=== PATIENT | male | born 2000 | race Caucasian/White ===

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

== ENCOUNTER 2023-02-12 19:55 | Emergency (ER) | payer SELFPAY ==
[2023-02-12 19:56] VITALS: BP 150/88; PULSE 86; RESP 16; TEMP 36.4; O2SAT 100; BMI 26.9
[2023-02-12 21:19] LABS: Absolute Lymphocyte Count 1.95 X10^3/uL (0.83-4.51); Absolute Neutrophil Count 5.7 X10^3/uL (2.0-7.7); Basophil# 0.02 X10^3/uL; Basophil% 0.2 % (0-1); Eosinophil# 0.07 X10^3/uL; Eosinophils% 0.8 % (0-5); Hematocrit 46.1 % (40-54); Hemoglobin 15.6 g/dL (13.0-16.5); Lymphocyte # 1.95 X10^3/ul (0.83-4.51); Lymphocyte % 23.6 % (19-41); Mean Corp Hgb Conc 33.8 g/dL (32-36); Mean Corpuscular Hgb 30.5 pg (27.0-32.0); Mean Platelet Vol. 9.9 fl (6.2-12.0); Monocyte# 0.54 X10^3/uL; Monocyte% 6.5 % (0-10); NRBC Flagged by Analyzer 0 % (0-5); Neutrophil # 5.66 X10^3/uL (2.7-7.7); Neutrophil % 68.7 % (47-70); Platelet Count 245 K/mm3 (150-450); RBC Distribution Width CV 11.9 % (11.6-14.6); RBC Distribution Width SD 38.9 fl (35.1-43.9); Red Blood Count 5.12 M/mm3 (4.6-6.2); White Blood Count 8.3 K/mm3 (4.4-11.0)
[2023-02-12 21:30] LABS: Amphetamine Urine VISTA NEGATIVE (<1000 ng/mL); Barbiturate Urine VISTA NEGATIVE (< 200 ng/mL); Benzodiazepine Urine VISTA NEGATIVE (< 200 ng/mL); Cocaine Urine VISTA NEGATIVE (< 300 ng/mL); Ecstacy Urine VISTA NEGATIVE (< 500 ng/mL); Methadone Urine VISTA NEGATIVE (< 300 ng/mL); PCP Urine VISTA NEGATIVE (< 25 ng/mL); THC Urine VISTA NEGATIVE (< 50 ng/mL); Vista UDS pH Range 6
[2023-02-12 21:40] LABS: Anion Gap 5 (5-15); BUN 16 mg/dL (7-18); BUN/Creat Ratio 12.3 RATIO (10-20); Calcium,Total 8.9 mg/dL (8.5-10.1); Chloride 105 mmol/L (98-107); EST Glomerular Filtration Rate 73 mL/min (>60); Est Glom Filt Rate - Afr Amer 89 mL/min (>60); Estimated Creatinine Clearance 92.03 ml/min; Glucose 83 mg/dL (74-106); Potassium 3.6 mmol/L (3.5-5.1); Sodium Level 138 mmol/L (136-145)
[2023-02-12 21:46] LABS: Alcohol, Blood (Medical)-Serum < 3.0 mg/dL
--- NOTE | 2023-02-12 21:56 | EX.ED.DYSGE1 ---
HPI <DALE Zavala - Last Filed: 02/12/23 22:31> History of Present Illness Chief Complaint: Mental Health Narrative Narrative: Patient is a 22-year-old male who is here with his mom and girlfriend secondary to uncontrolled anxiety. Patient has been on and off prednisone over the last several weeks secondary to a rash from a penicillin. Patient has been to the emergency department for separate times secondary to anxiety. Patient thinks that he is going to . Speaking to his mom and his girlfriend, they are continually reassuring him that he is not dying. Every little feeling that the patient is feeling he believes it is the end of his life. Patient denies any suicidal homicidal ideation, patient has any plan to hurt himself. He states is actually the opposite, he is so scared of dying that he is having difficulty living. PFSH <DALE Zavala - Last Filed: 02/12/23 22:31> [facility] Home Medications hydroxyzine HCl 25 mg tablet 25 mg PO TID PRN itching #20 tabs 02/12/23 [Rx Last Taken Unknown] Allergy/AdvReac Type Severity Reaction Status Date / Time bee venom protein (honey bee) Allergy Hives Verified 02/12/23 19:56 Penicillins Allergy Hives Verified 02/12/23 19:56 shellfish derived Allergy Anaphylaxis Verified 02/12/23 19:56 Surgical History Adel teeth removed Social History (Updated 02/12/23 @ 22:15 by Ashlie King) household members: family Smoking Status: Never smoker alcohol intake: never ROS <DALE Zavala - Last Filed: 02/12/23 22:31> ROS ED ROS Narrative Constitutional: Negative for fever, chills, weight loss, weakness Eyes: Negative for vision loss, vision change, double vision ENT: Negative for any sore throat, ear pain, congestion Cardiovascular: Negative for any chest pain, tightness, palpitations Respiratory: Negative for any cough, sputum production, hemoptysis, dyspnea, dyspnea on exertion, orthopnea Gastrointestinal: Negative for any abdominal pain, nausea, vomiting, diarrhea, constipation, blood in stool, blood in vomit : Negative for any urinary frequency, dysuria, retention, blood in urine Muscle skeletal: Negative for any muscle joint pain, stiffness, myalgias, arthralgias, neck pain, back pain Neurological: Negative for any headache, syncope, numbness or tingling, dizziness Skin: Negative for any rashes, lumps, itching, abrasions, lacerations Psychiatric: Negative for any depression, suicidal ideation, homicidal ideation. Positive for anxiety, stress Hematologic: Negative for any easy bruising, excessive bruising, easy bleeding Allergies: Negative for any eczema, hives, rash EXAM <DALE Zavala - Last Filed: 02/12/23 22:31> Physical Exam Narrative Exam Narrative: Vital signs reviewed. Patient is alert and orient x4. Patient does appear anxious. Patient is clear that he has no suicidal homicidal ideation. HEET: Head normocephalic atraumatic, TMs clear bilaterally. Posterior pharynx is clear, moist mucous membranes. Nares clear bilaterally. Neck: Supple with no lymphadenopathy or tenderness. No signs of meningismus, negative jolt sign. Cardiac: Regular rate and rhythm no murmurs gallops or rubs, equal peripheral pulses bilaterally. Respiratory: Lungs clear to auscultation bilaterally. No chest tenderness. Abdomen: Soft, nontender, nondistended. No abdominal bruit or pulsatile masses. No hepatosplenomegaly Extremities: No peripheral edema, no signs of gross trauma or deformity. Active full range of motion of all extremities. Neuro: Cranial nerves II through XII intact, no focal neurological deficits. Skin: Clean dry and intact with no rash, purpura, petechiae, vesicles or pustules. Backs/flank: No CVA tenderness, no midline spinal tenderness, no deformity. Psych: Normal mood and affect. No SI, HI or acute psychosis. Patient does appear anxious. Const Vital Signs: 02/12/23 19:56 02/12/23 22:00 Temperature 97.6 F L Temperature Source Temporal Pulse Rate 86 Respiratory Rate 16 16 Blood Pressure 150/88 H Blood Pressure Mean 108 Pulse Ox 100 <Dr. Nayana Jimenez, DO - Last Filed: 02/13/23 01:02> Physical Exam Const Vital Signs: 02/12/23 19:56 02/12/23 22:00 Temperature 97.6 F L Temperature Source Temporal Pulse Rate 86 Respiratory Rate 16 16 Blood Pressure 150/88 H Blood Pressure Mean 108 Pulse Ox 100 [facility] <DALE Zavala - Last Filed: 02/12/23 22:31> [facility] Lab Data Labs: Laboratory Results - last 24 hr 02/12/23 02/12/23 21:00 21:12 WBC 8.3 RBC 5.12 Hgb 15.6 Hct 46.1 MCV 90.0 MCH 30.5 MCHC 33.8 RDW Std Deviation 38.9 RDW Coeff of Ammy 11.9 Plt Count 245 MPV 9.9 Immature Gran % (Auto) 0.200 Neut % (Auto) 68.7 Lymph % (Auto) 23.6 [place] % (Auto) 6.5 Eos % (Auto) 0.8 Baso % (Auto) 0.2 Absolute Neuts (auto) 5.7 Absolute Lymphs (auto) 1.95 Nucleated RBC % 0 Sodium 138 Potassium 3.6 Chloride 105 Carbon Dioxide 28.0 Anion Gap 5 BUN 16 Creatinine 1.30 Estim Creat Clear Calc 92.03 Est GFR (MDRD) Af Amer 89 Est GFR (MDRD) Non-Af 73 BUN/Creatinine Ratio 12.3 Glucose 83 Calcium 8.9 TSH 2.46 Cortisol 3.20 L Urine Opiates Screen NEGATIVE Urine Methadone Screen NEGATIVE Ur Barbiturates Screen NEGATIVE Ur Phencyclidine Scrn NEGATIVE Ur Amphetamines Screen NEGATIVE MDMA (Ecstasy) Screen NEGATIVE U Benzodiazepines Scrn NEGATIVE Urine Cocaine Screen NEGATIVE U Cannabinoids Screen NEGATIVE Ur Drug Screen Comment Ethyl Alcohol < 3.0 Treatment and Re-Evaluation :: Patient is in no obvious distress. Patient is not suicidal, homicidal. Patient is here for anxiety, is here with his mother and girlfriend. Patient is clear that he is not suicidal homicidal. The mother and family are concerned as well as exhausted secondary the patient's ongoing anxiety about potentially dying.Patient did receive basic laboratory values, patient CBC, chemistries were grossly unremarkable, patient's toxicology is unremarkable. Patient's alcohol was negative. I did order a TSH as well as a cortisol serum. Patient was given 1 mg of Ativan. On reevaluation, the patient was more calm. Do not believe the patient needs inpatient therapy. Do believe the patient is safe for outpatient. He will be given psychiatry as well as hydroxyzine. Instructed to stop his Benadryl. Spoke with the patient and the patient's mother and girlfriend, all are in agreement. They were given strict return precaution to return for any worsening anxiety, suicidal, homicidal ideation. They need to follow-up outpatient. <Dr. Nayana Jimenez, DO - Last Filed: 02/13/23 01:02> [facility] Lab Data Labs: Laboratory Results - last 24 hr 02/12/23 02/12/23 21:00 21:12 WBC 8.3 RBC 5.12 Hgb 15.6 Hct 46.1 MCV 90.0 MCH 30.5 MCHC 33.8 RDW Std Deviation 38.9 RDW Coeff of Ammy 11.9 Plt Count 245 MPV 9.9 Immature Gran % (Auto) 0.200 Neut % (Auto) 68.7 Lymph % (Auto) 23.6 [place] % (Auto) 6.5 Eos % (Auto) 0.8 Baso % (Auto) 0.2 Absolute Neuts (auto) 5.7 Absolute Lymphs (auto) 1.95 Nucleated RBC % 0 Sodium 138 Potassium 3.6 Chloride 105 Carbon Dioxide 28.0 Anion Gap 5 BUN 16 Creatinine 1.30 Estim Creat Clear Calc 92.03 Est GFR (MDRD) Af Amer 89 Est GFR (MDRD) Non-Af 73 BUN/Creatinine Ratio 12.3 Glucose 83 Calcium 8.9 TSH 2.46 Cortisol 3.20 L Urine Opiates Screen NEGATIVE Urine Methadone Screen NEGATIVE Ur Barbiturates Screen NEGATIVE Ur Phencyclidine Scrn NEGATIVE Ur Amphetamines Screen NEGATIVE MDMA (Ecstasy) Screen NEGATIVE U Benzodiazepines Scrn NEGATIVE Urine Cocaine Screen NEGATIVE U Cannabinoids Screen NEGATIVE Ur Drug Screen Comment Ethyl Alcohol < 3.0 Treatment and Re-Evaluation :: Patient is in no obvious distress. Patient is not suicidal, homicidal. Patient is here for anxiety, is here with his mother and girlfriend. Patient is clear that he is not suicidal homicidal. The mother and family are concerned as well as exhausted secondary the patient's ongoing anxiety about potentially dying.Patient did receive basic laboratory values, patient CBC, chemistries were grossly unremarkable, patient's toxicology is unremarkable. Patient's alcohol was negative. I did order a TSH as well as a cortisol serum. Patient was given 1 mg of Ativan. On reevaluation, the patient was more calm. Do not believe the patient needs inpatient therapy. Do believe the patient is safe for outpatient. He will be given psychiatry as well as hydroxyzine. Instructed to stop his Benadryl. Spoke with the patient and the patient's mother and girlfriend, all are in agreement. They were given strict return precaution to return for any worsening anxiety, suicidal, homicidal ideation. They need to follow-up outpatient. I have personally performed a face to face assessment of the patient and have reviewed the DHARMESH Note. I performed a substantive portion of the visit including all aspects of the following. My andrade findings include: Patient is a 22-year-old male presenting with mother for worsening anxiety. Patient has intrusive thoughts that make him feel like something is going to kill him and then he feels like he must come to the emergency room to be evaluated. He is given oral Ativan in the ER. He had multiple ER visits between [facility] and [facility]. He has no HI or SI. His symptoms seem to be exacerbated by recent treatment with steroids beginning of the month secondary to presumed penicillin rash. The rash is also still present however is no longer itchy. Patient is not interested in voluntary inpatient psych at this time especially when I explained to him that without insurance likely will be a prolonged wait however I would be happy to get started on that if he would like. He is given multiple outpatient resources including outpatient psychiatry, counseling center as well as for dermatology for his rash. Medically there does not seem to be an acute issue such as adrenal crisis or other acute abnormality causing any emergent process. Started on hydroxyzine for symptom control. Other additions or changes: [None] Discharge Plan Triage Chief Complaint: Mental Health ED Midlevel Provider: Roe Teajda ED Provider: Nayana Jimenez Dx/Rx/DC Orders Clinical Impression: Anxiety disorder, Panic attack Instructions: Anxiety Disorders Tx, Anxiety Disorders Medicine, ED Anxiety Reaction Prescriptions: New hydroxyzine HCl 25 mg tablet 25 mg PO TID PRN (Reason: itching) Qty: 20 0RF Primary Care Provider: Nida Tran NP Referrals: Counseling,Center [Group of Physicians] - As soon as possible Ananth Adrian MD [Med Staff - Heel Molder] - As Needed Yovani Latham DO [Med Staff - Heel Molder] - Nida Tran NP, TUYERE FITTER-C [Primary Care Provider] - Activity Restrictions/Additional Instructions: Use hydroxyzine. Follow-up outpatient. Disposition Disposition: Home, Self Care Discharge Date/Time: 02/12/23 23:53
[2023-02-12 22:00] VITALS: RESP 16
[2023-02-12] MEDS: LORazepam 1 MG Tablet PO (22:02)
[2023-02-12 23:11] LABS: Thyroid Stim Hormone (TSH) 2.46 uIU/mL (0.358-3.74)
== END 2023-02-12 23:53 | disposition home or self-care (01) ==
PROVIDERS: Nurse Practitioner; Emergency Provider Emergency Medicine; PCP Nurse Practitioner Family; Visit Provider Emergency Medicine
DX: F41.0 Panic disorder [episodic paroxysmal anxiety] (principal)
CPT/HCPCS: 99281 ×2; 80048; 80307; 82077; 82533; 84443; 85025; 87811; 99283

== ENCOUNTER 2024-08-31 12:35 | Emergency (ER) | payer BC, SELFPAY ==
[2024-08-31 12:36] VITALS: BP 135/10; PULSE 82; RESP 16; TEMP 36.6; O2SAT 98; BMI 26.6
--- NOTE | 2024-08-31 13:18 | CT_ITS ---
PROCEDURE: ABDOMEN/PELVIS W IV CONT ONLY 08/31/2024 REASON FOR EXAM: CONSTIPATION, GI BLEED Chronic constipation and left lower quadrant pain. TECHNIQUE: Abdomen CT without and with intravenous contrast. Coronal and Sagittal reconstruction series were provided. PATIENT PREPARATION: Per protocol ORAL CONTRAST TYPE: None. CONTRAST: Isovue 300 VOLUME: 100 mLmL One or more dose reduction techniques were used (e.g., Automated exposure control, adjustment of the mA and/or kV according to patient size, use of iterative reconstruction technique. RADIATION DOSE SUMMARY: CTDlvol: 13.2 mGy DLP: 730.05 mGycm COMPARISON: None FINDINGS: Lung bases: Unremarkable Liver: Normal size. No mass. Gallbladder: Unremarkable Spleen: Normal size. Pancreas: Normal size without evidence of mass surrounding inflammation or ductal dilation. Adrenals: Unremarkable Kidneys: Normal renal sizes. No hydronephrosis. Bladder: Unremarkable Bowel: No bowel obstruction. Unremarkable Appendix: Unremarkable Lymph nodes: No suspicious lymph node enlargement. Vasculature: The abdominal aorta and IVC are normal. Peritoneum / Retroperitoneum: Unremarkable Bones: Straightening of the normal lumbar lordosis most likely secondary to muscle spasm. CT/Abdomen/Pelvis W IV Cont ONLY IMPRESSION: NO ACUTE FINDINGS AT THE ABDOMEN OR PELVIS ON CONTRAST-ENHANCED CT. Reading Location: [place] [id number]
--- NOTE | 2024-08-31 13:33 | EDS_ITS ---
HPI History of Present Illness Chief Complaint: GI Bleed Narrative Narrative: Chief complaint and HPI: Bright red blood per rectum. 23-year-old male with history of chronic constipation presents for evaluation of bright red blood per rectum. Patient states that he suffers from constipation daily but is not on a bowel regiment. He states that he often has hard stools that require pushing. He states his last hard stool was yesterday. Patient states since Thursday he has been having intermittent bright red blood per rectum when he has a bowel movement. He states the blood is on the toilet paper as well as in the bowl. He states he had issues with hemorrhoids in the past. He states that he has had some intermittent left lower quadrant abdominal pain. Has never had a colonoscopy. Denies any fever, chills, shortness of breath, chest pain, nausea, vomiting, diarrhea, dysuria. Review of systems: See HPI Medications: As listed on the chart Allergies: As listed on the chart PFSH: Per chart Vital signs: As listed on the chart. Reviewed. Physical exam: Gen: A&O x3, NAD Head: Normocephalic, atraumatic Eyes: No sclera icterus, conjunctiva clear ENT: Moist mucous membranes Neck: Trachea midline, No JVD CV: RRR, no murmurs, no peripheral edema Resp: Lungs CTA BL, no w/r/c GI: Abd soft, non-distended, minimal tenderness to the left lower quadrant, no r/r/g Rectal: Normal external examination. No evidence of hemorrhoids or fissures. Normal tone and sensation. No masses, fluctuance, or tenderness. No pain out of proportion. + small amount of bright red blood on the gloved finger Musc: Full ROM, no deformity Skin: Warm, dry Neuro: Alert, oriented, grossly intact, sensation intact Psych: Cooperative, appropriate mood and affect [facility] Medications ?Medication ?Instructions ?Recorded ?Last Taken ?Type hydroxyzine HCl 25 mg tablet 25 mg PO TID PRN itching #20 tabs 02/12/23 Unknown Rx polyethylene glycol 3350 17 17 g PO DAILY 30 days #510 grams 08/31/24 Unknown Rx gram/dose oral powder (Miralax) Allergy/AdvReac Type Severity Reaction Status Date / Time bee venom protein (honey bee) Allergy Hives Verified 08/31/24 12:37 Penicillins Allergy Hives Verified 08/31/24 12:37 shellfish derived Allergy Anaphylaxis Verified 08/31/24 12:37 Surgical History [place] teeth removed Social History (Updated 02/12/23 @ 22:15 by Ashlie King) household members: family Smoking Status: Never smoker alcohol intake: never EXAM Physical Exam Const Vital Signs: 08/31/24 12:36 08/31/24 14:35 08/31/24 15:50 Temperature 97.9 F 98.9 F 98.6 F Temperature Source Oral Oral Pulse Rate 82 64 62 Respiratory Rate 16 18 18 Blood Pressure 135/10 H 124/72 H 117/55 L Blood Pressure Mean 51 89 75 Pulse Ox 98 98 98 Oxygen Delivery Method Room Air Room Air MDM MDM MDM Narrative Medical decision making narrative: 23-year-old male with history of chronic constipation presents for evaluation of bright red blood per rectum. Differential diagnosis includes but is not limited to hemorrhoidal bleeding, constipation, diverticulosis, diverticulitis, anemia. See physical exam findings. Patient did have minimal bright red blood on the gloved finger with digital rectal exam. NS bolus ordered. Abdominal labs ord ered including CT abdomen and pelvis. CBC without leukocytosis or anemia. CT abdomen pelvis without acute intra-abdominal pathology. No diverticulosis or diverticulitis. Patient does have some stool in the colon. CMP with mild hypokalemia. P.o. potassium ordered. No DEONTE. Patient has transaminitis with an AST of 119 and ALT of 90. Patient is not endorsing any right upper quadrant or epigastric abdominal pain. Unclear etiology for this elevation. Lipase unremarkable. On reevaluation, patient has not had a bloody bowel movement here in the emergency department. Patient's vitals are stable. I suspect that patient's bright red blood per rectum is likely secondary to hemorrhoidal bleeding from constipation. Will place him on a bowel regiment. Follow-up with GI as well as PCP. He was explained that he needs to follow-up for his transaminitis as well as his GI bleeding. He confirmed understanding. Patient stable to discharge home. Return precautions explained. Impression: 1. Bright red blood per rectum 2. Constipation 3. Transaminitis 4. Hypokalemia Lab Data Labs: Laboratory Results - last 24 hr 08/31/24 13:38 WBC 5.7 RBC 4.54 L Hgb 14.0 Hct 40.0 MCV 88.1 MCH 30.8 MCHC 35.0 RDW Std Deviation 38.6 RDW Coeff of Ammy 12.1 Plt Count 254 MPV 10.5 Immature Gran % (Auto) 0.300 Neut % (Auto) 61.9 Lymph % (Auto) 26.0 [place] % (Auto) 10.3 H Eos % (Auto) 1.2 Baso % (Auto) 0.3 Absolute Neuts (auto) 3.5 Absolute Lymphs (auto) 1.49 Nucleated RBC % 0 Sodium 137 Potassium 3.2 L Chloride 101 Carbon Dioxide 23.1 Anion Gap 12 BUN 9 Creatinine 1.10 Estim Creat Clear Calc 107.84 Est GFR (MDRD) Non-Af 97 BUN/Creatinine Ratio 8.4 L Glucose 118 H Lactic Acid < 1.0 Calcium 9.5 Total Bilirubin 0.34 AST 119 H ALT 90 H Alkaline Phosphatase 62 Total Protein 7.3 Albumin 4.3 Globulin 3.0 Albumin/Globulin Ratio 1.5 Lipase 34 Radiography Diagnostic Testing: Clinical Impression(s) from Imaging Studies Abdomen/Pelvis CT 08/31/24 13:18 IMPRESSION: NO ACUTE FINDINGS AT THE ABDOMEN OR PELVIS ON CONTRAST-ENHANCED CT. Reading Location: [place] [id number] Discharge Plan Triage Chief Complaint: GI Bleed ED Provider: Avery Liu Dx/Rx/DC Orders Instructions: ED Constipation (Adult), ED Lower GI Bleeding (Stable) Prescriptions: New polyethylene glycol 3350 [Miralax] 17 gram/dose powder 17 g PO DAILY 30 Days Qty: 510 0RF No Action hydroxyzine HCl 25 mg tablet 25 mg PO TID PRN (Reason: itching) Qty: 20 0RF Primary Care Provider: Nida Tran NP Referrals: Charbel Valladares DO [Med Staff - Active Staff] - 3-5 Days Nida Tran NP, [facility] [Primary Care Provider] - 3-5 Days Activity Restrictions/Additional Instructions: Return back to the ED if symptoms change or worsen. Follow-up with GI for bleeding and constipation. Follow-up with primary care physician for elevated liver enzymes, low potassium, and constipation. Print Language: Kyr[place]z Disposition Disposition: Home, Self Care Discharge Date/Time: 08/31/24 15:51
[2024-08-31] MEDS: 0.9% Normal Saline (1000mL) 1,000 ML 999 ML IV (13:55)
[2024-08-31 14:10] LABS: Absolute Lymphocyte Count 1.49 X10^3/uL (0.83-4.51); Absolute Neutrophil Count 3.5 X10^3/uL (2.0-7.7); Basophil# 0.02 X10^3/uL; Basophil% 0.3 % (0-1); Eosinophil# 0.07 X10^3/uL; Eosinophils% 1.2 % (0-5); Lymphocyte # 1.49 X10^3/ul (0.83-4.51); Mean Corpuscular Hgb 30.8 pg (27.0-32.0); Mean Corpuscular Volume 88.1 fL (80-94); Mean Platelet Vol. 10.5 fl (6.2-12.0); Monocyte# 0.59 X10^3/uL; Monocyte% 10.3 % (0-10); NRBC Flagged by Analyzer 0 % (0-5); Neutrophil # 3.53 X10^3/uL (2.7-7.7); Neutrophil % 61.9 % (47-70); Platelet Count 254 K/mm3 (150-450); RBC Distribution Width CV 12.1 % (11.6-14.6); RBC Distribution Width SD 38.6 fl (35.1-43.9); Red Blood Count 4.54 M/mm3 (4.6-6.2); White Blood Count 5.7 K/mm3 (4.4-11.0)
[2024-08-31 14:35] VITALS: BP 124/72; PULSE 64; RESP 18; TEMP 37.2; O2SAT 98
[2024-08-31 15:09] LABS: ALB/GLOB Ratio 1.5 RATIO (0.9-2.4); AST(SGOT) 119 U/L (<=37); Alanine Aminotransfer ALT/SGPT 90 U/L (<=46); Albumin, Serum 4.3 g/dL (3.5-5.0); Alkaline Phosphatase 62 U/L (40-129); Anion Gap 12 (5-15); BUN 9 mg/dL (4-19); BUN/Creat Ratio 8.4 RATIO (10-20); Calcium,Total 9.5 mg/dL (7.6-11.0); Carbon Dioxide 23.1 mmol/L (21.0-32.0); Chloride 101 mmol/L (98-108); EST Glomerular Filtration Rate 97 (>60); Estimated Creatinine Clearance 107.84 ml/min (50-250); Glucose 118 mg/dL (70-99); Lipase 34 U/L (13-75); Potassium 3.2 mmol/L (3.3-5.1); Protein, Total 7.3 g/dL (5.9-8.4); Sodium Level 137 mmol/L (133-145); Total Bilirubin 0.34 mg/dL (0.00-1.30)
[2024-08-31 15:25] LABS: Lactic Acid < 1.0 mmol/L (0.0-2.0)
[2024-08-31 15:50] VITALS: BP 117/55; PULSE 62; RESP 18; TEMP 37; O2SAT 98
[2024-08-31] MEDS: Potassium Chloride Oral Soln 20 MEQ/15 ML UDC 40 MEQ PO (15:50)
== END 2024-08-31 15:51 | disposition home or self-care (01) ==
PROVIDERS: Emergency Provider Surgery; PCP Nurse Practitioner Family; Referring Provider Surgery; Visit Provider Surgery
DX: K62.5 Hemorrhage of anus and rectum (principal); R74.01 Elevation of levels of liver transaminase levels; K59.00 Constipation, unspecified; E87.6 Hypokalemia
CPT/HCPCS: 74177; 80053; 82274; 83605; 83690; 85025; 96360; 96361; 99283; Q9967; A4216